=== PATIENT | male | born 1975 ===

== ENCOUNTER 2018-02-04 13:36 | Inpatient (IN) ==
[2018-02-04] MEDS ORDERED: FAMOTIDINE 20 MG/2 ML VIAL IV STA (13:57)
[2018-02-04] MEDS ORDERED: ONDANSETRON 4 MG/2 ML VIAL IV PRN (14:21)
[2018-02-04] MEDS ORDERED: FAMOTIDINE 20 MG/2 ML VIAL IV ONE (14:32)
[2018-02-04 14:39] LABS: Basophils % 0.3 % (0.0-0.8); Eosinophils % 0.2 % (0.00-10.9); Hematocrit 45.2 VOL% (42.0-52.0); Immature Granulocytes % 0.8 %; Immature Granulocytes Absolute 0.05 #; Lymphocytes # 1.2 10*3/uL (1.4-4.0); Lymphocytes % 19.6 % (21.2-54.2); Mean Corpuscular HGB Conc 35.4 GM/DL (32-36); Mean Corpuscular Hemoglobin 34 PG (27-34); Mean Platelet Volume 9.4 FL (9.6-12.0); Monocytes # 0.4 10*3/uL (0.11-0.8); Monocytes % 7.1 % (1.7-12.7); Neutrophils # 4.4 10*3/uL (1.4-7.4); Platelet Count 171 T/CUMM (130-400); Red Blood Count 4.76 MC/CUMM (3.8-5.5); Red Cell Distribution Width 13.8 % (9.3-17.3); White Blood Count 6.2 T/CUMM (4-12)
[2018-02-04 14:54] LABS: PT Patient Result 10.7 SECS; Partial Thromboplastin Time 25.6 SECS (0-40)
[2018-02-04 14:58] LABS: Ammonia 28 UMOL/L (11-32)
[2018-02-04 15:04] LABS: Alanine Aminotransferase 51 U/L (16-61); Alkaline Phosphatase 91 U/L (45-117); Aspartate Amino Transferase 66 U/L (0-37); Bilirubin,Total < 0.39 MG/DL (0.2-1.0); Calcium 7.8 MG/DL (8.5-10.1)
[2018-02-04 15:05] LABS: Albumin 3.1 G/DL (3.4-5.0); Blood Urea Nitrogen 3 MG/DL (7-18); Glucose 140 MG/DL (74-106); Potassium 3.8 MMOL/L (3.5-5.1); Sodium 143 MMOL/L (136-145); Total Protein 7.3 G/DL (6.4-8.3)
[2018-02-04] MEDS: PANTOPRAZOLE 40 MG VIAL IV SCH (16:01)
[2018-02-04] MEDS: SODIUM CHLORIDE 0.45% 1,000 ML IV SCH (16:04)
[2018-02-04 16:28] LABS: Apearance,Urine CLEAR (Clear); Bilirubin,Urine Negative (Negative); Blood, Urine Large mg/dL (Negative); Glucose,Urine (UA) Negative (Negative); Ketones,Urine 5 mg/dL (Negative); Mucus,Urine Occasional /LPF (Occasional); Nitrite,Urine Negative (Negative); Protein,Urine Negative; RBC,Urine 41 /HPF (0-4); Urine Color Yellow (Yellow); Urine Specific Gravity 1.006 (1.001-1.035); Urine Urobilinogen < 2.0 EU/DL (0.2-1.0); WBC,Urine 5 /HPF (0-6)
[2018-02-04 17:23] LABS: ABG Base Excess 1.9 MMOL/L (-2.5-2.5); ABG HCO3 26.9 MMOL/L (20-26); ABG Oxygen Saturation 96.1 % (95-100); ABG PCO2 43.3 MM HG (35-48); ABG PH 7.411 (7.35-7.45); ABG PO2 88.4 MM HG (80-95); ABG TCO2 28.2 MMOL/L (23-27); Allen Test Positive
[2018-02-04] MEDS ORDERED: LORazepam 2 MG/1 ML VIAL IV ONE (18:22)
[2018-02-04] MEDS ORDERED: diphenhydrAMINE 50 MG/1 ML VIAL IV ONE (18:23)
[2018-02-04] MEDS ORDERED: ENOXAPARIN 40 MG/0.4 ML SYRINGE SUBCUT SCH (21:00)
[2018-02-05] MEDS: SODIUM CHLORIDE 0.45% 1,000 ML IV SCH ×3 (00:12→07:59)
[2018-02-05 06:06] LABS: Red Blood Count 4.25 MC/CUMM (3.8-5.5); White Blood Count 8.7 T/CUMM (4-12)
[2018-02-05 06:07] LABS: Basophils % 0.2 % (0.0-0.8); Hematocrit 40.6 VOL% (42.0-52.0); Hemoglobin 14.3 GM/DL (14.0-18.0); Immature Granulocytes % 0.6 %; Immature Granulocytes Absolute 0.05 #; Lymphocytes # 1.1 10*3/uL (1.4-4.0); Lymphocytes % 12.7 % (21.2-54.2); Mean Corpuscular HGB Conc 35.2 GM/DL (32-36); Mean Corpuscular Hemoglobin 34 PG (27-34); Mean Corpuscular Volume 95.5 FL (87-102); Mean Platelet Volume 9.3 FL (9.6-12.0); Monocytes # 0.8 10*3/uL (0.11-0.8); Monocytes % 9.3 % (1.7-12.7); Neutrophils # 6.7 10*3/uL (1.4-7.4); Neutrophils % 77.2 % (38.7-73.9); Platelet Count 145 T/CUMM (130-400); Red Cell Distribution Width 14.3 % (9.3-17.3)
[2018-02-05 06:56] LABS: Albumin 2.9 G/DL (3.4-5.0); Bilirubin,Total 1.3 MG/DL (0.2-1.0); Calcium 7.7 MG/DL (8.5-10.1); Potassium 3.6 MMOL/L (3.5-5.1); Risk Ratio 2.41; Thyroid Stimulating Hormone 0.47 uIU/ml (0.358-3.74); Total Protein 6.6 G/DL (6.4-8.3); VLDL CHOLESTEROL 24.6 MG/DL
[2018-02-05] MEDS: PANTOPRAZOLE 40 MG VIAL IV SCH (07:59)
[2018-02-05] MEDS ORDERED: SODIUM CHLORIDE 0.45% 1,000 ML IV SCH (11:30)
[2018-02-05 15:23] VITALS: BP 149/86
[2018-02-06] MEDS ORDERED: PANTOPRAZOLE 40 MG TABLET PO SCH (09:00)
[2018-02-06 14:55] LABS: Osmolality, Serum 338 mOsm/kg (275 - 295)
[2018-02-07 05:22] LABS: Isopropanol Serum 207 mg/dL; Methanol Serum Not Detected
[2018-02-07 15:46] LABS: Ethylene Glycol Serum Not Detected
== END 2018-02-05 15:49 | disposition home or self-care (01) | DRG 918 ==
LOC: EDBD → EDUNIT# → N.ED 13:36 → N.EDINP 13:51 → N.CC 15:05
PROVIDERS: ADMIT Internal Medicine; ATTEND Internal Medicine